=== PATIENT | female | born 1975 | race Caucasian/White ===

== ENCOUNTER → 2020-05-09 | Outpatient (CLI) | payer OTHER ==
[~2020-05-09] MED LIST: SPRINTEC1 EACH PO; THERA-M CAPLET1 EACH PO; VITAMIN C + RO500 MG PO
== END ==
LOC: BC 09:02
PROVIDERS: ATTEND Obstetrics & Gynecology
DX: Z12.31 Encounter for screening mammogram for malignant neoplasm of breast (principal)